=== PATIENT | male | born 1980 | race Asian ===

== ENCOUNTER → 2016-04-18 | Outpatient (CLI) | payer OTHER ==
--- NOTE | ~2016-04-18 | US6 ---
[facility] A Service of [facility] RADIOLOGY TEXT RESULTS PATIENT: CINDA MUÑIZ LOCATION: [facility] : 80 UNIT #: [id number] AGE: [address]: Caitlin Ayon MD SEX: M ORDER DR: [id number] [facility] [address] [place], [place] [address] [id number] O MR#: [id number] Acc #: [id number] NAME: CINDA MUÑIZ : 1980 SEX: M STUDY DATE/TIME: 04/18/2016 7:41 UNIT: [facility] ROOM: STUDY DESCRIPTION: US Abdominal Limited Attending Physician: Caitlin Ayon M.D. Referring Physician: Caitlin Ayon M.D. Ordering Physician: Caitlin Ayon M.D. Primary Care Physician: Caitlin Ayon M.D. MEDICAL IMAGING REPORT This report is preliminary unless electronic signature is present EXAM Right upper quadrant abdominal ultrasound INDICATIONS Chronic hepatitis B. Generalized abdominal pain for the past few months. Observation for cirrhosis and hepatocellular carcinoma. PROCEDURE Harris-scale and Doppler imaging right upper quadrant of the abdomen COMPARISON None FINDINGS Visualized portions of pancreas are unremarkable. The liver measures 13.3 cm. No liver mass on submitted images. The right kidney measures 10 cm. Unremarkable gallbladder. Common duct measures 2 mm. IMPRESSION Negative right upper quadrant abdominal ultrasound. Dictated by... Cal Aguilar M.D. THIS IS AN ELECTRONICALLY VERIFIED REPORT Cal Aguilar M.D. at 04/19/2016 7:36 AM Wilber TD: 04/18/2016 12:08 JOB #: [id number] MEDICAL IMAGING REPORT COPY
== END | disposition home or self-care (01) ==
LOC: CGUS 07:07
DX: B18.1 Chronic viral hepatitis B without delta-agent (principal)
CPT/HCPCS: 76705